=== PATIENT | male | born 1970 | race American Indian/Alaskan Native ===

== ENCOUNTER 2017-12-31 16:41 | Emergency (ER) | payer BC ==
[2017-12-31 16:55] VITALS: BP 133/99
[2017-12-31] MEDS ORDERED: ASPIRIN PO ONE (19:05)
[2017-12-31 21:06] LABS: Basophils # (Auto) 0.1 K/mm3 (0.0-0.1); Basophils % (Auto) 0.8 % (0.0-1.8); Eosinophils % (Auto) 0.3 % (0.0-4.3); Hematocrit 50.1 % (35.5-45.6); Hemoglobin 16.6 gm/dl (11.8-15.2); Lymphocytes # (Auto) 2.8 K/mm3 (1.2-5.4); Lymphocytes % (Auto) 37.4 % (13.4-35.0); Mean Corpuscular HGB Conc 33 % (32-34); Mean Corpuscular Hemoglobin 30 pg (28-32); Mean Corpuscular Volume 90 fl (84-94); Monocytes # (Auto) 0.5 K/mm3 (0.0-0.8); Monocytes % (Auto) 7.1 % (0.0-7.3); Platelet Count 272 K/mm3 (140-440); Red Blood Count 5.58 M/mm3 (3.65-5.03); Red Cell Distribution Width 12.5 % (13.2-15.2)
[2017-12-31 21:28] LABS: BUN/Creatinine Ratio 20; Blood Urea Nitrogen 32 mg/dL (9-20); Hemolysis Index 18
[2017-12-31] MEDS ORDERED: NACL 0.9% 1000 ML 1,000 ML IV ONE (22:50)
[2017-12-31] MEDS ORDERED: REGLAN IV ONE (22:50)
[2017-12-31] MEDS ORDERED: REGLAN ONE (23:00)
[2017-12-31] MEDS ORDERED: NACL 0.9% 1000 ML ONE (23:00)
[2017-12-31] MEDS ORDERED: BENADRYL ONE (23:00)
[2017-12-31] MEDS ORDERED: BENADRYL IV ONE (23:13)
--- NOTE | 2017-12-31 23:19 | Emergency Department Report ---
ED Headache HPI - General Chief Complaint: Headache Stated Complaint: HEADACHE Time Seen by Provider: 12/31/17 22:56 - History of Present Illness Initial Comments: 47-year-old -[place] male with a past medical history of sinusitis comes in reporting that he has a headache for the last 2 days. Patient rates his headache 9 out of 10 on the pain scale. Patient admits to nausea and photophobia but he denies any visual changes no fever no chills no vomiting. He reports that he's had history of similar headaches in the past. He reports that the headache is sharp and feels like pressure and is located on the frontal and occipital left side. Patient reports that he does work out in the heat and is not a big fan of drinking water. Patient does not report any chest pain to this provider to my interview. Timing/Duration: other (2 day) Recent Head Trauma: frequent headaches Modifying Factors: improves with: exposure to light Associated Symptoms: nausea/vomiting. denies: facial pain, fever/chills, loss of consciousness, nasal congestion, nasal drainage, seizures, sinus infection, stiff neck, vision changes Allergies/Adverse Reactions: Allergies No Known Allergies Allergy (Unverified 12/31/17 16:57) Home Medications: Ambulatory Orders Acetaminophen [Tylenol Extra Strength] 500 mg PO QID #30 tablet 01/01/18 ED Review of Systems ROS: Stated complaint: HEADACHE Other details as noted in HPI Eyes: other (photophobia) Gastrointestinal: nausea Neurological: headache Psychiatric: denies: anxiety, depression Hematological/Lymphatic: denies: easy bleeding, easy bruising ED Past Medical Hx - Past Medical History Previous Medical History?: Yes Additional medical history: sinusitis - Surgical History Past Surgical History?: No - Social History Smoking Status: Unknown if ever smoked - Medications Home Medications: Home Medications Medication Instructions Recorded Confirmed Last Taken Type Acetaminophen [Tylenol Extra 500 mg PO QID #30 tablet 01/01/18 Unknown Rx Strength] ED Physical Exam - General Limitations: No Limitations General appearance: alert, in no apparent distress - Head Head exam: Present: atraumatic, normocephalic - Eye Eye exam: Present: normal appearance - ENT ENT exam: Present: mucous membranes moist - Neck Neck exam: Present: full ROM. Absent: lymphadenopathy - Respiratory Respiratory exam: Present: normal lung sounds bilaterally. Absent: respiratory distress - Cardiovascular Cardiovascular Exam: Present: regular rate, normal rhythm. Absent: systolic murmur, diastolic murmur, rubs, gallop - GI/Abdominal GI/Abdominal exam: Present: soft. Absent: distended, tenderness - Extremities Exam Extremities exam: Present: normal inspection - Neurological Exam Neurological exam: Present: alert, oriented X3 - Expanded Neurological Exam Expanded Speech: Present: fluid speech Cranial nerves: EOM's Intact: Normal, Gag Reflex: Normal, Tongue Deviation: Normal, Nystagmus: Normal, Facial Sensation: Normal, Facial Palsy with Forehead Movement: Normal, Facial Palsy without Forehead Movement: Normal Cerebellar function: Finger to Nose: Normal, Heel to Díaz: Normal, Romberg: Normal Motor strength exam: RUE: 5, LUE: 5, RLE: 5, LLE: 5 Best Eye Response (Luis): (4) open spontaneously Best Motor Response (Luis): (6) obeys commands Best Verbal Response ([place]): (5) oriented [place] Total: 15 - Psychiatric Psychiatric exam: Present: normal affect, normal mood - Skin Skin exam: Present: warm, dry, intact, normal color. Absent: rash ED Course Vital Signs 12/31/17 16:52 Temperature 97.8 F Pulse Rate 89 Respiratory 16 Rate Blood Pressure 133/99 O2 Sat by Pulse 99 Oximetry - Reevaluation(s) Reevaluation #1: 01/01/18 01:35 Patient reports he feels much better after having a medication and fluids. Will discharge patient home to follow up with neurology and her primary care provider. ED Medical Decision Making - Lab Data Result diagrams: 12/31/17 20:21 12/31/17 20:21 - Medical Decision Making Patient's been evaluated by this provider fast track. Review of labs patient has elevated H&H as well as elevated BU Mann of 32 with elevated creatinine 1.6. There is no previous chart or labs to review to compare. Patient's given IV fluids Toradol Reglan and Benadryl to help with a headache. Critical care attestation.: If time is entered above; I have spent that time in minutes in the direct care of this critically ill patient, excluding procedure time. ED Disposition Clinical Impression: Dehydration Headache Qualifiers: Headache type: unspecified Headache chronicity pattern: acute headache Intractability: intractable Qualified Code(s): R51 - Headache Disposition: DC- TO HOME OR SELFCARE Is pt being admited?: No Does the pt Need Aspirin: No Condition: Stable Instructions: Acute Headache (ED), Dehydration (ED) Additional Instructions: Please take pain medication as needed for headache. Please increase her water intake by 2 L a day. It is very important for you to follow up with her primary care provider in the next 3-5 days. Please inform them that he was seen in the emergency room and there was some concerns in regards to her kidney functions. Prescriptions: Acetaminophen [Tylenol Extra Strength] 500 mg PO QID #30 tablet Referrals: PRIMARY CARE, [Primary Care Provider] - 3-5 Days [facility] [Provider Group] - 3-5 Days Forms: Work/School Release Form(ED)
[2018-01-01] MEDS ORDERED: NACL 0.9% 1000 ML 1,000 ML IV ONE (00:48)
== END 2018-01-01 02:07 | disposition home or self-care (01) ==
LOC: ED 16:41
DX: E86.0 Dehydration (principal); R51 Headache
CPT/HCPCS: 36415; 80048; 84484; 85025; 93005; 93010; 96361; 96374; 96375; 99284; J1200; J2765; J7030